=== PATIENT | female | born 2000 | race Hispanic/Latino ===

== ENCOUNTER 2024-07-23 07:51 | Day surgery (SDC) | payer OTHER ==
[2024-07-18 10:49] VITALS: BMI 37.5
[2024-07-23] MEDS ORDERED: fentaNYL PF 100 MCG/2 ML SYRINGE ONE ×2 (09:10→11:43)
[2024-07-23] MEDS ORDERED: Midazolam HCl 2 mg/2 ml Vial ONE ×2 (09:11→09:34)
[2024-07-23] MEDS ORDERED: PROPOFOL 20 ML ONE (09:11)
[2024-07-23] MEDS ORDERED: CEFAZOLIN 2 GM VIAL ONE (09:13)
[2024-07-23] MEDS ORDERED: Bupivacaine 0.25% HCL 30 ML VIAL ONE ×2 (09:23→10:04)
[2024-07-23] MEDS ORDERED: EPINEPHrine 1 MG/ML VIAL ONE ×2 (09:23→10:04)
[2024-07-23] MEDS ORDERED: Ondansetron PF 4 MG/2 ML Vial ONE ×2 (09:29→10:14)
[2024-07-23] MEDS ORDERED: Dexamethasone 20 MG/5 ML VIAL ONE ×2 (09:29→10:14)
[2024-07-23] MEDS ORDERED: Lidocaine 1% PF 5 ML VIAL ONE (09:29)
[2024-07-23] MEDS ORDERED: Rocuronium Bromide 10 MG/ML (10ML VIAL) ONE (09:29)
[2024-07-23] MEDS ORDERED: Esmolol 100 MG/10 ML VIAL ONE (10:22)
[2024-07-23] MEDS ORDERED: Indocyanine Green 25 MG/10 ML VIAL ONE (11:15)
[2024-07-23] MEDS ORDERED: NEOSTIGMINE 3 MG/3 ML SYRINGE ONE (11:49)
[2024-07-23] MEDS ORDERED: Glycopyrrolate 0.2 MG/ML 5 ML SYRINGE ONE (11:49)
[2024-07-23] MEDS ORDERED: Ketorolac Tromethamine 30 MG (1 mL) VIAL ONE (11:55)
[2024-07-23] MEDS ORDERED: fentaNYL 50 mcg/mL 1 mL Vial ONE (12:39)
[2024-07-23] MEDS ORDERED: HYDROcodone/Acetaminophen 5/325 mg Tablet ONE (13:54)
== END 2024-07-23 15:00 | disposition home or self-care (01) ==
LOC: SDC 07:51
PROVIDERS: ATTEND Surgery
PROC: BF03YZZ Plain Radiography of Gallbladder and Bile Ducts using Other Contrast (ICD-10-PCS; principal; 2024-07-23)
PROC: 0FT44ZZ Resection of Gallbladder, Percutaneous Endoscopic Approach (ICD-10-PCS; principal; 2024-07-23)
DX: K80.12 Calculus of gallbladder with acute and chronic cholecystitis without obstruction (principal); K82.8 Other specified diseases of gallbladder
CPT/HCPCS: 88304; C1889; J0171; J0665; J1100; J1885; J2250; J2405; J2704; J3010; S2900